=== PATIENT | male | born 1965 | race Caucasian/White ===

== ENCOUNTER 2018-05-16 16:52 | Emergency (ER) | payer OTHER ==
[~2018-05-16] VITALS: Ht 182.9 cm; Wt 99.8 kg
[~2018-05-16 16:52] MED LIST: CLON1TAB5 PO; ESCI20TA PO; METH10TA4 PO; TEMA30CA5 PO
[2018-05-16 17:34] VITALS: BP_SYST 119
[2018-05-16] MEDS ORDERED: KETOROLAC TROMETHAMINE 60 MG/2 ML VIAL IM ONE (18:00)
[2018-05-16 18:45] LABS: BASOPHILS % (AUTO) 0.6 % (0.0-2.0); EOSINOPHILS # (AUTO) 0.1 K/uL (0.0-0.4); EOSINOPHILS % (AUTO) 1.8 % (0.0-4.0); HEMATOCRIT 42.6 % (36-54); HEMOGLOBIN 14.1 g/dL (14.0-18.0); LYMPHOCYTES # (AUTO) 1.8 K/uL (1.0-5.5); LYMPHOCYTES % (AUTO) 23.7 % (20.5-51.5); MEAN CORPUSCULAR HEMOGLOBIN 32 pg (27-31); MEAN CORPUSCULAR HGB CONC 33 % (32-36); MEAN CORPUSCULAR VOLUME 95 fL (79.0-98.0); MONOCYTES # (AUTO) 0.7 K/uL (0.0-1.0); NEUTROPHILS # (AUTO) 4.9 K/uL (1.8-7.7); NEUTROPHILS % (AUTO) 64.9 % (40.0-70.0); PLATELET COUNT (AUTO) 322 K/uL (130-430); RED BLOOD CELL COUNT(AUTO) 4.47 MIL/uL (4.2-6.2); RED CELL DISTRIBUTION WIDTH 14.6 % (9.0-15.0); WHITE BLOOD COUNT (AUTO) 7.5 K/uL (4.8-10.8)
[2018-05-16 18:59] LABS: CALCIUM 9.7 mg/dL (8.4-11.0); CREATININE 1.07 mg/dL (0.55-1.30); POTASSIUM 4.1 mmol/L (3.5-5.1)
[2018-05-16 19:03] LABS: ALBUMIN 3.7 g/dL (3.4-4.8); C-REACTIVE PROTEIN QUANT 0.3 mg/dL (0-0.5); TOTAL BILIRUBIN 0.3 mg/dL (0.0-1.0)
[2018-05-16 19:12] LABS: PROTHROMBIN TIME 10.4 SECS (9.5-12.5)
[2018-05-16] MEDS ORDERED: ONDANSETRON 4 MG ODT TAB PO ONE (19:15)
[2018-05-16] MEDS ORDERED: MORPHINE SULFATE 10 MG/ML VIAL IM ONE (19:15)
[2018-05-16 19:26] LABS: ERYTHROCYTE SEDIMENTATION RATE 14 MM/HR (0-15)
[2018-05-16 19:30] VITALS: BP_SYST 128
== END 2018-05-16 19:30 | disposition home or self-care (01) ==
LOC: SED 16:52
DX: R25.2 Cramp and spasm (principal); F32.9 Major depressive disorder, single episode, unspecified; F43.10 Post-traumatic stress disorder, unspecified; Z79.899 Other long term (current) drug therapy
CPT/HCPCS: 36415; 73552; 80053; 85025; 85610; 85651; 85730; 86140; 96372; 99285; J1885; J2270; Q0162